=== PATIENT | male | born 1990 | race Two or more races ===

== ENCOUNTER 2024-09-15 14:51 | Emergency (ER) | payer MEDICAID, SELFPAY ==
[2024-09-15 14:52] VITALS: BMI 20.5
[2024-09-15 15:10] VITALS: BP 126/91; PULSE 60; RESP 18; TEMP 36.6; O2SAT 99
--- NOTE | 2024-09-15 15:16 | XR_ITS ---
Examination: PA lateral chest 2 views TECHNIQUE: Upright PA lateral chest 2 views Exam date and time: September 15, 2024 1526 hours Comparison March 04, 2024 INDICATIONS: Left upper abdomen chest pain today. FINDINGS: Normal heart size. The lungs are clear. The osseous structures are intact IMPRESSION: No active disease
--- NOTE | 2024-09-15 15:17 | XR_ITS ---
Examination: CT abdomen and pelvis without contrast. Coronal 3-D reconstructions. Sagittal 2-D reconstructions. Date and time of exam:September 15, 2024 1528 hours INDICATIONS: Abdominal pain beginning today CTDI: vol (mGy): 6.23 DLP: (mGycm): 345 Technique: Axial images of the abdomen have been obtained, 3 mm slice thickness Intravenous contrast material has not been administered. Low dose protocols were performed. One or more of the following dose reduction techniques were used; automated exposure control, adjustment of the mA and/or KV according to patient size, use of iterative reconstruction technique. Findings: No focal liver or splenic lesions No gallstones No pancreatic or adrenal mass 2 mm upper pole nonobstructing right renal calculus Aorta normal size Normal appendix No diverticulitis Urinary bladder intact No significant prostatomegaly Grade 1 spondylolisthesis L5 on S1 IMPRESSION: 2 mm nonobstructing right renal calculus, no hydronephrosis or ureteral calculi Normal appendix No bowel obstruction diverticulitis or free air
--- NOTE | 2024-09-15 15:17 | PD.EDRME ---
Rapid Medical Screening Exam RME Arrival date/time: 09/15/24 14:51 33-year-old male presents to the emergency department complains of upper abdominal pain ongoing x 1 day Chief Complaint: Abdominal Pain Time Seen by Provider: 09/15/24 14:56 Vital signs: Vital Signs Temperature 98 F 09/15/24 15:10 Pulse Rate 60 09/15/24 15:10 Respiratory Rate 18 09/15/24 15:10 Blood Pressure 126/91 H 09/15/24 15:10 Pulse Oximetry (%) 99 09/15/24 15:10 Oxygen Delivery Method Room Air 09/15/24 15:10
[2024-09-15 16:14] LABS: Basophils # (Auto) 0.1 Thou/mm3 (0.0-0.2); Basophils % (Auto) 1 % (0-2.5); Eosinophils # (Auto) 0.2 Thou/mm3 (0.0-0.5); Eosinophils % (Auto) 2 % (0-10); Hematocrit 42.6 % (41.0-53.0); Hemoglobin 14.8 g/dL (13.5-16.0); Immature Granulocytes % (Auto) 0 % (0-0); Immature Granulocytes Auto 0.03 Thou/mm3 (0.00-0.00); Lymphocytes # (Auto) 2.1 Thou/mm3 (1.0-4.8); Lymphocytes % (Auto) 29 % (10-50); Mean Corpuscular HGB Conc 34.7 g/dl (31.0-37.0); Mean Corpuscular Hemoglobin 30.3 pg (25.0-35.0); Mean Corpuscular Volume 87 fL (80-100); Monocytes # (Auto) 0.6 Thou/mm3 (0.0-0.8); Monocytes % (Auto) 8 % (0-12); Neutrophils # (Auto) 4.3 Thou/mm3 (1.8-7.7); Neutrophils % (Auto) 59 % (37-80); Nucleated Red Blood Cell % 0 /100 WBC (0); Platelet Count 219 Thou/mm3 (140-440); RDW Standard Deviation 41.5 fL (35.1-43.9); Red Blood Count 4.89 Miln/mm3 (4.50-5.90); White Blood Count 7.3 Thou/mm3 (3.8-10.6)
[2024-09-15 16:32] LABS: Collection Type, Urine Clean Catch; Squamous Epithelial Cell,Urine 0 /hpf (0-5); WBC,Urine 0 /hpf (0-5)
[2024-09-15 16:36] LABS: Alanine Aminotransferase 29 U/L (10-49); Albumin, Serum 4.9 gm/dL (3.5-5.0); Alkaline Phosphatase 142 U/L (46-116); Anion Gap 9 (7-16); Aspartate Amino Transferase 20 U/L (0-34); BUN/Creatinine Ratio 13 Ratio (12-20); Bilirubin,Total 0.8 mg/dL (0.3-1.2); Blood Urea Nitrogen 12 mg/dL (9-23); Calcium 9.3 mg/dL (8.3-10.6); Calcium (Corrected) 9.3 mg/dL (8.5-10.1); Carbon Dioxide 26.1 mMol/L (20.0-31.0); Chloride 103 mMol/L (98-107); Creatinine (Component) 0.9 mg/dL (0.6-1.3); Estimated Creatinine Clearance 88.2 mL/min (>60); Globulin 2.4 gm/dL (2.3-3.5); Glucose 101 mg/dL (74-106); Lipase 33 U/L (12-53); Osmolality,Calculated 275 (275-295); Potassium 3.9 mMol/L (3.4-5.1); Sodium 138 mMol/L (136-145); Total Protein 7.3 gm/dL (5.7-8.2); Troponin I < 0.002 ng/mL (0.0-0.045); eGFR > 60 See Note
--- NOTE | 2024-09-15 16:38 | EDNOTE_ITS ---
ED General RME/HPI General Chief complaint: Abdominal Pain Stated complaint: abdomen pain left upper quadrant x 1 day Time Seen by Provider: 09/15/24 14:56 Arrival date/time: 09/15/24 14:51 CC: Left upper abdominal pain no nausea vomiting HPI ongoing for 1 day. Denies nausea vomiting chest pain shortness of breath difficulty breathing denies blunt trauma repetitive motion no other complaints no OTC medicines taken has no primary care doctor. RME / HPI RME / HPI narrative: 09/15/24 14:51 33-year-old male presents to the emergency department complains of upper abdominal pain ongoing x 1 day Related Data Previous Rx's ?Medication ?Instructions ?Recorded azithromycin 500 mg tablet See Rx Instructions PO .COMPLEX #6 03/04/24 tabs benzonatate 100 mg capsule 100 mg PO TID #14 caps 03/04/24 meloxicam 7.5 mg tablet 7.5 mg PO QDAY #10 tabs 09/15/24 Allergies Allergy/AdvReac Type Severity Reaction Status Date / Time No Known Allergies Allergy Verified 03/25/23 14:07 Review of Systems Review of Systems Narrative Review of Systems: GEN: No fever, no chills, no weight loss EYES: No discharge, no visual changes, no pain HEENT: No ear pain, no congestion, no sore throat PULM: No shortness of breath, no cough, no congestion CV: No chest pain, no dyspnea on exertion, no palpitations GI: No nausea, no vomiting, no diarrhea, + pain, no constipation : No frequency, no urgency, no dysuria MUSC/SKEL: No joint pain, no back pain SKIN: No rash PSYCH: No hallucinations, no depression HEME/LYMPH: No easy bleeding or bruising tendencies NEURO: No weakness, no headache Past Medical History Social History SMOKING STATUS: Never smoker ED Exam Narrative Physical exam: [General: Not in any acute distress Head normocephalic HEENT: Within acceptable limits Neck is supple nontender Chest equal chest rise mild tenderness to the palpation of the chest wall left distal midclavicular over ribs 10. No crepitus induration ulceration Respiratory: Clear to auscultation no wheezes crackles or rubs CV: Rate rhythm is regular no murmurs rubs or clicks Abdomen is soft nontender no masses positive bowel sounds all 4 quadrants Back: No CVA tenderness no spinous process tenderness from cervical spine thoracic and lumbar spine Skin: Intact no petechiae rash induration ulceration or crepitus Extremities: Moving all extremity against resistance cap refill less than 2 seconds neurosensory intact Neuro: Awake alert oriented x3 Glascow coma 15 no focal deficits] Course Quality Measures none Orders Category Date Time Status CT abdomen pelvis wo con Stat Exams 09/15/24 15:17 Completed XR chest 2V Stat Exams 09/15/24 15:16 Completed CBC Stat Lab 09/15/24 15:59 Completed Comprehensive Metabolic Panel Stat Lab 09/15/24 15:59 Completed Lipase Stat Lab 09/15/24 15:59 Completed Troponin I Stat Lab 09/15/24 15:59 Completed UA, C/S IF [Urinalysis, C/S if Indicated] Stat Lab 09/15/24 16:20 Received Vital Signs Vital signs: Vital Signs Temperature 98 F 09/15/24 15:10 Pulse Rate 60 09/15/24 15:10 Respiratory Rate 18 09/15/24 15:10 Blood Pressure 126/91 H 09/15/24 15:10 Pulse Oximetry (%) 99 09/15/24 15:10 Oxygen Delivery Method Room Air 09/15/24 15:10 [facility] Patient data External records reviewed:: [facility] previous records Clinical information provided by:: patient Social determinants that could affect healthcare access:: none Patient has the following chronic illnesses:: None How is presenting disease/condition affected by chronic disease/condition?: u neffected by Evaluation data The following diagnostics were reviewed and interpreted by me:: lab results and radiology exam(s) Lab and/or radiology exams considered but not ordered:: CBC shows no acute leukocytosis anemia thrombocytopenia CMP shows no acute electrolyte imbalances renal impairment transaminitis or T. bili elevation Lipase is normal Urine is unremarkable CT of the abdomen shows nonobstructive renal calculi but no other acute finding requires emergent or immediate intervention as interpreted by me read by radiologist. Interpretation Summary: No acute finding requires emergent or immediate intervention patient be discharged home with chest wall abdominal pain Medications Medications considered but not ordered:: None Medication administrations:: None Consultations Consultation(s) initiated? (list below): No Diagnosis Differential Diagnosis ED Complaint MDM: Pancreatitis gastritis pneumonia Most likely diagnosis given after review of the tests above:: Left upper quadrant abdominal pain Admission Indicated Admission indicated?: not indicated Explain why admission is indicated or not indicated:: Stable for outpatient follow-up Admission Request Was there a request for admission?: No Disposition Plan Disposition Plan: Discharge Discharge Attestation Discharge Attestation: The patient and all family members were given an opportunity to ask questions and understood the discharge instructions. Discharge instructions specifically effects, indications for sooner follow up or return to the emergency department, and the expected course of current diagnosis. Patient condition: Stable Medical Decision Making Differential Diagnosis Differential Diagnosis: Pancreatitis gastritis pneumonia Lab Data 09/15/24 15:59 09/15/24 15:59 Labs: Lab Results 09/15/24 Range/Units 15:59 WBC 7.3 (3.8-10.6) Thou/mm3 RBC 4.89 (4.50-5.90) Miln/mm3 Hgb 14.8 (13.5-16.0) g/dL Hct 42.6 (41.0-53.0) % MCV 87 (80-100) fL MCH 30.3 (25.0-35.0) pg MCHC 34.7 (31.0-37.0) g/dl RDW Std Deviation 41.5 (35.1-43.9) fL Plt Count 219 (140-440) Thou/mm3 Neut % (Auto) 59 (37-80) % Lymph % (Auto) 29 (10-50) % Yates % (Auto) 8 (0-12) % Eos % (Auto) 2 (0-10) % Baso % (Auto) 1 (0-2.5) % Neut # (Auto) 4.3 (1.8-7.7) Thou/mm3 Lymph # (Auto) 2.1 (1.0-4.8) Thou/mm3 Yates # (Auto) 0.6 (0.0-0.8) Thou/mm3 Eos # (Auto) 0.2 (0.0-0.5) Thou/mm3 Baso # (Auto) 0.1 (0.0-0.2) Thou/mm3 Immature Gran # (Auto) 0.03 H (0.00-0.00) Thou/mm3 Absolute Nucleated RBC 0.00 (0.00-0.00) Thou/mm3 Immature Gran % 0 (0-0) % Nucleated RBC % 0 (0) /100 WBC Sodium 138 (136-145) mMol/L Potassium 3.9 (3.4-5.1) mMol/L Chloride 103 (98-107) mMol/L Carbon Dioxide 26.1 (20.0-31.0) mMol/L Anion Gap 9 (7-16) BUN 12 (9-23) mg/dL Creatinine 0.9 (0.6-1.3) mg/dL Estim Creat Clear Calc 88.2 (>60) mL/min eGFR > 60 (60 - ) See Note BUN/Creatinine Ratio 13 (12-20) Ratio Glucose 101 (74-106) mg/dL Calculated Osmolality 275 (275-295) Calcium 9.3 (8.3-10.6) mg/dL Corrected Calcium 9.3 (8.5-10.1) mg/dL Total Bilirubin 0.8 (0.3-1.2) mg/dL AST 20 (0-34) U/L ALT 29 (10-49) U/L Alkaline Phosphatase 142 H (46-116) U/L Troponin I < 0.002 (0.0-0.045) ng/mL Total Protein 7.3 (5.7-8.2) gm/dL Albumin 4.9 (3.5-5.0) gm/dL Globulin 2.4 (2.3-3.5) gm/dL Albumin/Globulin Ratio 2.0 (1.2-2.2) Lipase 33 (12-53) U/L Discharge Plan Plan Patient Disposition: HOME (Self Care) Patient condition on transfer: Stable Prescriptions/Referrals Prescriptions/Med Rec: New meloxicam 7.5 mg tablet 7.5 mg PO QDAY Qty: 10 0RF No Action benzonatate 100 mg capsule 100 mg PO TID Qty: 14 0RF azithromycin 500 mg tablet See Rx Instructions .ROUTE .COMPLEX Qty: 6 0RF Rx Instructions: take 500 mg today (day 1), then 250 mg for 4 days (days 2-5) Referrals: Jewel Mishra MD [Primary Care Provider] - In 1 week Problem List Clinical Impression: Abdominal pain, acute, left upper quadrant Patient/Caregiver Discharge Instructions Education Materials: Abdominal Pain Additional Instructions: Take the medications as prescribed as needed if there is a worsening of symptoms return the emergency room for further evaluation. Print Language: Australian Stand Alone Forms: Myriam Award Info., Patient Portal Info Letter, Work/School Release PA/ASSISTANT FINANCE DIRECTOR Supervising Physician PA/ASSISTANT FINANCE DIRECTOR Supervising Physician: Gerardo Baer ENP
[2024-09-15 16:45] LABS: Bilirubin,Urine Negative (Negative); Blood,Urine Negative (Negative); Clarity,Urine Clear (Clear/Hazy); Color,Urine Colorless (Lt Yel-Yel); Culture Indicated,Urine Not Indicated; Glucose, Urine Negative (Negative); Ketones,Urine Negative (Negative); Leukocyte Esterase,Urine Negative (Negative); Nitrite,Urine Negative (Negative); Protein,Urine Negative (Neg - Trace); RBC,Urine < 1 /hpf (0-3); Specific Gravity,Urine 1.003 (1.001-1.035); Urobilinogen,Urine Negative mg/dL (0.0-1.0)
[2024-09-15 16:49] VITALS: BP 122/83; PULSE 56; RESP 16; TEMP 37.2; O2SAT 97
== END 2024-09-15 17:02 | disposition home or self-care (01) ==
PROVIDERS: Nurse Practitioner Primary Care; Emergency Provider Emergency Medicine; PCP Family Medicine
DX: N20.0 Calculus of kidney (principal); R10.12 Left upper quadrant pain; R07.9 Chest pain, unspecified
CPT/HCPCS: 36415; 71046; 74176; 80053; 81001; 83690; 84484; 85025; 99284